=== PATIENT | male | born 1935 | race Caucasian/White ===

== ENCOUNTER → 2017-01-07 12:59 | Outpatient (CLI) | payer MEDICARE, OTHER ==
[2015-12-30 11:44] VITALS: BMI 24.5
[~2017-01-07 12:59] MED LIST: CARDIZEM30 MG PO; HEMOCYTE PLUS C1 CAP PO; HYDROCHLOROTH12.5 M1 PO; HYDROCODONE-APA1 TAB PO; OCUVITE TABLET1 TA1 PO; VITAMIN D5000 UNIT PO; ZENPEP DR 10,01 EACH PO; ZENPEP PO; ZESTRIL20 MG PO
== END | disposition home or self-care (01) ==
LOC: D.CT 12:59
DX: I71.4 Abdominal aortic aneurysm, without rupture (principal)

== ENCOUNTER → 2018-03-18 09:43 | Outpatient (CLI) | payer MEDICARE, OTHER ==
[2015-12-30 11:44] VITALS: BMI 24.5
== END | disposition home or self-care (01) ==
LOC: D.US 09:43
DX: I71.4 Abdominal aortic aneurysm, without rupture (principal)